=== PATIENT | female | born 1955 | race Caucasian/White ===

== ENCOUNTER 2017-04-12 06:30 | Inpatient (IN) | payer BC, OTHER ==
[2017-04-12] MEDS ORDERED: Acetaminophen 500 MG Tab PO ONE (06:45)
[2017-04-12] MEDS ORDERED: Scopolamine 1.5 MG Transdermal Patch TRDERM PRN (06:45)
[2017-04-12] MEDS ORDERED: Celecoxib 200 MG Cap PO ONE (06:45)
[2017-04-12] MEDS ORDERED: Gabapentin 300 MG Cap PO ONE (06:45)
[2017-04-12] MEDS ORDERED: Meropenem 500 MG SDV ONE (06:49)
[2017-04-12] MEDS ORDERED: Succinylcholine/Normal Saline 200 MG/10 ML Syringe ONE (07:09)
[2017-04-12] MEDS ORDERED: Propofol 200 MG/20 ML SDV ONE (07:09)
[2017-04-12] MEDS ORDERED: Ondansetron 4 MG/2 ML SDV ONE (07:09)
[2017-04-12] MEDS ORDERED: Neostigmine Methylsulfate 1 MG/ML 5 ML Syringe ONE (07:09)
[2017-04-12] MEDS ORDERED: Rocuronium 50 MG/5 ML Vial ONE (07:09)
[2017-04-12] MEDS ORDERED: Dexamethasone 4 MG/ML SDV ONE (07:09)
[2017-04-12] MEDS ORDERED: fentaNYL 250 MCG/5 ML SDV ONE ×2 (07:09→09:19)
[2017-04-12] MEDS ORDERED: Naloxone 0.4 MG/ML SDV IVPUSH PRN (07:55)
[2017-04-12] MEDS: Dextrose 5%-Lactated Ringers 1,000 ML IV SCH ×3 (08:02→21:54)
[2017-04-12] MEDS: HYDROmorphone/Normal Saline 15 MG/30 ML PCA IV PRN ×2 (08:03→12:32)
[2017-04-12] MEDS ORDERED: cefOXitin 2 GM in Sodium Chloride 0.9% 50 ML IV ONE (08:30)
[2017-04-12] MEDS ORDERED: Ropivacaine 46 ML, Dexamethasone 8 MG, EPINEPHrine 0.4 MG, Sodium Chloride 0.9% 31.6 ML NERVRT SCH ×4 (09:30)
[2017-04-12] MEDS ORDERED: Lidocaine 2% 100 MG/5 ML Syringe IVPUSH ONE (09:30)
[2017-04-12] MEDS ORDERED: Ketamine 500 MG/5 ML MDV IV SCH (09:30)
[2017-04-12] MEDS ORDERED: Labetalol 20 MG/4 ML Syringe ONE (09:33)
[2017-04-12] MEDS: Lidocaine 0.4%/D5W 2 GM/500 ML BAG IV SCH (13:23)
[2017-04-12] MEDS ORDERED: diphenhydrAMINE 50 MG/ML SDV IVPUSH PRN (14:00)
[2017-04-12] MEDS ORDERED: Metoclopramide 10 MG/2 ML SDV IVPUSH PRN (14:00)
[2017-04-12] MEDS ORDERED: hydrOXYzine HCl 100 MG/2 ML SDV IM PRN (14:00)
[2017-04-12] MEDS ORDERED: SCOPOLAMINE PATCH ASK TOP SCH (14:00)
[2017-04-12] MEDS ORDERED: Ondansetron 4 MG/2 ML SDV IVPUSH PRN (14:00)
[2017-04-12] MEDS: Labetalol 20 MG/4 ML Syringe IVPUSH PRN ×2 (14:15→15:35)
[2017-04-12] MEDS: cefOXitin 2 GM in Sodium Chloride 0.9% 50 ML IV SCH ×2 (15:21→22:02)
[2017-04-12] MEDS: SCOPOLAMINE PATCH CHECK TOP SCH (15:45)
[2017-04-12] MEDS: Acetaminophen Soln 650 MG/20.3 ML UD Cup PO SCH ×2 (15:47→22:03)
[2017-04-12] MEDS: Pantoprazole 40 MG Vial IVPUSH SCH (15:54)
[2017-04-12] MEDS ORDERED: MVI, Adult with Vitamin K 10 ML, Thiamine 200 MG, Chromium/Copper/Mang/Selen/Zn 1 ML in... IV SCH ×4 (16:00)
[2017-04-12] MEDS: Heparin Sodium 5,000 Units/ML Vial SUBCUT SCH (18:09)
[2017-04-12] MEDS: Gabapentin 250 MG/5 ML Solution ML 470 ML Bottle PO SCH (22:02)
[2017-04-13] MEDS ORDERED: Iohexol 647 MG/ML 50 ML SDV PO SCH (01:45)
[2017-04-13] MEDS: cefOXitin 2 GM in Sodium Chloride 0.9% 50 ML IV SCH ×3 (01:59→13:47)
[2017-04-13] MEDS: Lidocaine 0.4%/D5W 2 GM/500 ML BAG IV SCH (02:05)
[2017-04-13] MEDS: Acetaminophen Soln 650 MG/20.3 ML UD Cup PO SCH ×4 (04:26→21:45)
[2017-04-13] MEDS: Dextrose 5%-Lactated Ringers 1,000 ML IV SCH ×2 (04:26→10:35)
[2017-04-13] MEDS: Heparin Sodium 5,000 Units/ML Vial SUBCUT SCH ×2 (05:36→17:16)
[2017-04-13] MEDS ORDERED: LORazepam 1 MG Tab PO PRN (07:28)
[2017-04-13] MEDS: Gabapentin 250 MG/5 ML Solution ML 470 ML Bottle PO SCH ×3 (08:05→20:35)
[2017-04-13] MEDS: Celecoxib 200 MG Cap PO SCH (08:05)
[2017-04-13] MEDS ORDERED: Estrogens,Conjugated Vaginal Crm 30 GM Tube VAG SCH (09:00)
--- NOTE | 2017-04-13 09:56 | CR ---
UGI wo KUB HISTORY: Prior gastric bypass. COMPARISON: None FINDINGS: Second image demonstrates the majority of the contrast in the mid small bowel with no dila chalo small bowel loops. No evidence for obstruction. No extravasation of contrast. Surgical drains at the level of the gastric bypass.
--- NOTE | 2017-04-13 09:57 | PN ---
DATE OF SERVICE: 04/13/2017 SUBJECTIVE: Mireya is a 61-year-old female who is postop day one. Her blood pressure has been slightly elevated. She has been up ambulating in the chair x2. She does have some dizziness which causes nausea when up. Output via Cosme catheter was 2575 mL. Her EDY drains 1, 2 and 3 have put out 85, 50 and 7 mL respectively. REVIEW OF SYSTEMS: Remainder of review of systems negative for any pertinent positives and negatives. OBJECTIVE: GENERAL: Mireya Muse is a 61-year-old female. She is alert, orientated, sitting up onto the bed. VITAL SIGNS: TPR 98.1, 81, 18, blood pressure 158/89. HEENT: Negative. NECK: Supple. HEART: Regular rate and rhythm. LUNGS: Clear. ABDOMEN: Dressings dry and intact and EDY drains x3 intact. ASSESSMENT: Exploratory laparotomy with esophagogastrectomy with America-en-Y esophageal jejunostomy and pancreatic atrophy for gastroesophageal reflux disease refractory to medical management, extensive adhesions and scarring of the gastric curvature to the pancreas. Date of surgery 04/12/2017. PLAN: 1. Step-2 without cereal gastric bypass diet. Decrease IV to 100 mL per hour. Dressing off, may shower. Discontinue continuous pulse ox and cardiac monitoring, lidocaine drip is in. Restart home medications of estrogen 0.625 mg p.o. daily. Estrogen conjugated vaginal cream 0.5 g daily intravaginally. 2. Lorazepam 1 mg every 4 hours p.r.n. anxiety. 3. Wellbutrin 150 mg p.o. b.i.d. 4. Trazodone 100 mg p.o. at bedtime. 5. Good pulmonary toilet encouraged. 6. We will evaluate p.r.n. or in a.m. Petra Mckeon PA-C /[id number]
[2017-04-13] MEDS: SCOPOLAMINE PATCH CHECK TOP SCH (10:31)
[2017-04-13] MEDS: buPROPion 100 MG Tab PO SCH ×2 (10:36→20:35)
[2017-04-13] MEDS ORDERED: MVI, Adult with Vitamin K 10 ML, Thiamine 200 MG, Chromium/Copper/Mang/Selen/Zn 1 ML in... IV SCH ×4 (16:00)
[2017-04-13] MEDS: Pantoprazole 40 MG Vial IVPUSH SCH (16:44)
[2017-04-13] MEDS: traZODone 50 MG Tab PO SCH (20:35)
[2017-04-14] MEDS: Dextrose 5%-Lactated Ringers 1,000 ML IV SCH (02:49)
[2017-04-14] MEDS: Acetaminophen Soln 650 MG/20.3 ML UD Cup PO SCH (04:20)
[2017-04-14] MEDS: Heparin Sodium 5,000 Units/ML Vial SUBCUT SCH ×2 (05:49→17:13)
[2017-04-14] MEDS: Celecoxib 200 MG Cap PO SCH (07:42)
[2017-04-14] MEDS ORDERED: Sodium Chloride 0.9% 10 ML Syringe IV PRN (07:54)
[2017-04-14] MEDS ORDERED: Furosemide 20 MG/2 ML VIAL IVPUSH ONE (09:00)
[2017-04-14] MEDS ORDERED: Cyanocobalamin (Vitamin B12) 1,000 MCG/ML SDV IM ONE (09:00)
[2017-04-14] MEDS: buPROPion 100 MG Tab PO SCH ×2 (09:50→21:35)
[2017-04-14] MEDS: Gabapentin 250 MG/5 ML Solution ML 470 ML Bottle PO SCH ×3 (09:50→21:35)
[2017-04-14] MEDS: Acetaminophen/oxyCODONE 325-5 MG Tab PO PRN ×3 (10:49→21:42)
[2017-04-14] MEDS: SCOPOLAMINE PATCH CHECK TOP SCH (10:50)
--- NOTE | 2017-04-14 16:16 | PCM.CONS ---
H&P History of Present Illness - General Date of Service: 04/14/17 Admit Problem/Dx: Admission Diagnosis/Problem Admission Diagnosis/Problem America-en-Y gastrojejunostomy Source of Information: Patient History Limitations: Reports: No Limitations - History of Present Illness Initial Comments - Free Text/Narative: I was asked by Dr. Rossi to evaluate Mireya regarding hypertension. She is day 2 postop after a partial gastrectomy. Initially blood pressures were elevated in the 180s but they had improved. This afternoon after ambulating her blood pressure was checked and noted to be 180/102. She has some mild nausea at this time but does not report any chest pain. She does not feel short of breath. She does not have any lower extremity or upper extremity edema. She did receive a dose of furosemide this morning. She has not been having any fevers. Tolerating her diet so far. No history of hypertension. She says that her blood pressure is normally very well controlled. Abdomen Pain Score (Numeric/FACES): 8 - Related Data Allergies/Adverse Reactions: Allergies Allergy/AdvReac Type Severity Reaction Status Date / Time bacitracin Allergy Rash Verified 04/12/17 06:57 Home Medications: Home Meds Cyanocobalamin (Vitamin B-12) [B-12] 1 tab PO DAILY 04/10/17 [History] Ergocalciferol (Vitamin D2) [Vitamin D2] 50,000 units PO Q7D 04/10/17 [History] Estrogens, Conjugated [Premarin Vaginal Crm] 0.5 g VAG DAILY 04/10/17 [History] Estrogens, Conjugated [Premarin] 0.625 mg PO DAILY 04/10/17 [History] LORazepam 1 mg PO Q4HR PRN 04/10/17 [History] Multivitamin [Multivitamins] 1 tab PO DAILY 04/10/17 [History] Pantoprazole Sodium [Protonix] 40 mg PO DAILY 04/10/17 [History] Scopolamine [Transderm-Scop] 1 patch TOP ASDIRECTED 04/10/17 [History] buPROPion [Wellbutrin SR] 300 mg PO DAILY 04/10/17 [History] traZODone 100 mg PO BEDTIME 04/10/17 [History] Past Medical History Gastrointestinal History: Reports: Chronic Diarrhea, GERD, Other (See Below) Other Gastrointestinal History: dumping syndrome Genitourinary History: Reports: UTI, Recurrent RECRUITER SPECIALIST History: Reports: Ectopic , - Past Surgical History HEENT Surgical History: Reports: Tonsillectomy GI Surgical History: Reports: Appendectomy, Bariatric Procedure, Cholecystectomy , Colonoscopy, EGD, Esophageal Dilatation, Other (See Below) Other GI Surgeries/Procedures: panniculectomy Female Surgical History: Reports: Hysterectomy, Tubal Ligation, Other (See Below) Other Female Surgeries/Procedures: "pocket in bladder" repaired Endocrine Surgical History: Reports: Other (See Below) Other Endocrine Surgeries/Procedures: partial thyroidectomy Musculoskeletal Surgical History: Reports: Other (See Below) Other Musculoskeletal Surgeries/Procedures:: knee surgery Social & Family History - Family History Cardiac: Denies: CAD - Tobacco Use Smoking Status *Q: Never Smoker Second Hand Smoke Exposure: No - Caffeine Use Caffeine Use: Reports: Soda - Alcohol Use Alcohol Use History: No - Recreational Drug Use Recreational Drug Use: No H&P Review of Systems - Review of Systems: Review Of Systems: See Below Free Text/Narrative: A complete 12 point review of systems was obtained. Pertinent positives and negatives are noted in the history of present illness. All other systems were reviewed and were negative except as noted. Exam - Exam Exam: See Below - Vital Signs Vital Signs: Last Vital Signs Temp 37.5 C 04/14/17 15:02 Pulse 96 04/14/17 15:02 Resp 16 04/14/17 15:02 BP 180/102 H 04/14/17 15:02 Pulse Ox 94 L 04/14/17 15:02 Weight: 90.265 kg - Exam Quality Assessment: No: Supplemental Oxygen General: Alert, Oriented, Cooperative. No: Mild Distress HEENT: Conjunctiva Clear, Mucosa Moist & Tees Toh. No: Scleral Icterus Neck: Supple, Trachea Midline Lungs: Clear to Auscultation, Normal Respiratory Effort Cardiovascular: Regular Rate, Regular Rhythm. No: Systolic Murmur GI/Abdominal Exam: Soft, No Distention, Tender Back Exam: Normal Inspection, Full Range of Motion Extremities: Normal Inspection, No Pedal Edema. No: Increased Warmth Skin: Warm, Dry Neuro Extensive - Mental Status: Alert, Oriented x3, Nl Response to Commands Neuro Extensive - Motor, Sensory, Reflexes: CN II-XII Intact. No: Dysarthria, Abnormal Motor, Tremor Psychiatric: Alert, Normal Affect Consult PN Assessment/Plan POD#: 2 Procedures: Procedures BLOOD TYPING SEROLOGIC ABO (04/06/17) BLOOD TYPING SEROLOGIC RH(D) (04/06/17) RBC ANTIBODY SCREEN (04/06/17) Problem List Initiated/Reviewed/Updated: Yes Plan: ASSESSMENT AND PLAN Accelerated hypertension - blood pressure elevated this afternoon but had been acceptable prior to that for the past 36 hours. No obvious red flags based on history or examination. She does feel a little nauseated and is having some increased pain at this time. She did receive a dose of furosemide this morning. No evidence for infection that I can see. There is no convincing evidence for volume overload. Could be related to recent ambulation and pain. -Repeat blood pressure in one hour -Consider laboratory studies including CBC BMP if blood pressure still elevated and one hour -I do not see an obvious reason to initiate antihypertensive therapy as of now Status post partial gastrectomy - general doing fairly well postoperatively with no major issues. She has been ambulating. -Postop cares per surgical team Panchito Mares M.D. Requesting Provider: Dr. Rossi Date Consult Requested: 04/14/17 Reason for Consult: Hypertension Patient History Reviewed: Yes Admission H&P Reviewed: Yes Notified Requestor: No Time Spent (in minutes): 45
[2017-04-14] MEDS ORDERED: Pantoprazole 40 MG Tab.CR PO SCH (16:30)
[2017-04-14] MEDS: traZODone 50 MG Tab PO SCH (21:35)
[2017-04-15] MEDS: Acetaminophen/oxyCODONE 325-5 MG Tab PO PRN ×3 (03:13→07:51)
[2017-04-15] MEDS: Heparin Sodium 5,000 Units/ML Vial SUBCUT SCH (05:52)
[2017-04-15] MEDS: Celecoxib 200 MG Cap PO SCH (07:52)
[2017-04-15 08:22] VITALS: BP 146/89
[2017-04-15] MEDS: buPROPion 100 MG Tab PO SCH (08:29)
[2017-04-15] MEDS: Gabapentin 250 MG/5 ML Solution ML 470 ML Bottle PO SCH (08:29)
[2017-04-15] MEDS ORDERED: Scopolamine 1.5 MG Transdermal Patch TOP ONE (10:00)
--- NOTE | 2017-04-15 10:29 | PN ---
DATE OF SERVICE: 04/14/2017 The patient has been afebrile, somewhat hypertensive. I think we will empirically give her a single dose of 10 mg of Lasix this morning and see if that brings down the blood pressure. Otherwise, we will switch over to oral pain medication from the SOCIAL SERVICES DIRECTOR. We will go with Percocet and discontinue the serial Tylenol, but continue the gabapentin and Celebrex. She may be ready for discharge home tomorrow. Rafael Rossi MD /[id number]
--- NOTE | 2017-04-16 14:46 | DISCH ---
FINAL DIAGNOSES: 1. Gastric outlet obstruction, refractory to medical and endoscopic management. 2. Extensive adhesive scarring between the gastric cardia and the pancreas. 3. Bariatric surgery status. OPERATIVE PROCEDURE: Exploratory laparotomy with: 1. Esophagogastrectomy with America-en-Y esophagojejunostomy. 2. Pancreatorrhaphy. 3. Resection and revision of jejunojejunostomy. This was done 04/12/2017. HOSPITAL COURSE: This 61-year-old female status post a America-en-Y gastric bypass done in [place] in 1994 who has had more or less from the time of surgery problems with obstruction at her gastrojejunostomy. Recent endoscopy confirmed a large amount of retained fluid along with a nondilatable stricture at the gastrojejunostomy. Given this at this point, the patient has undergone exploratory laparotomy with resection and revision of the area of the gastric outlet obstruction. At the time of dissection, the patient was noted to have extensive scarring between the pancreas and gastric cardia and esophagogastric junction. This necessitated a plane of dissection being more or less in the distal esophagus, i.e. esophagogastrectomy was accomplished. This was dissected off pancreas which did need to have some sutures and fibrin sealant for repair, but no significant ductal injury was noted. The patient also had a foreshortened America limb following the dissection and this was revised to provide it more satisfactorily lengthened America limb. Postoperatively, the patient has done well. She tolerated liquid diet and she is instructed to stay on a liquid diet with some protein supplements drinks for the first two weeks postoperatively. DISCHARGE MEDICATIONS: Include switching her Wellbutrin to 150 mg IR t.i.d., Neurontin 300 mg p.o. t.i.d. x2 weeks, Celebrex 200 mg p.o. q.a.m. x2 weeks, Percocet 5/325 mg 1 to 2 tabs q.4 hours p.r.n. pain, #50. She will be instructed to continue her estrogen, lorazepam, Protonix, and trazodone as before splitting or opening caplets x2 weeks and also continue use of scopolamine patches if she desires. We will have her hold the vitamin supplements until her 1st appointment. She will be following up with Petra Mckeon in [facility] on 04/20/2017. She will go home with a drain in her midline incision to minimize chances of seroma formation.
--- NOTE | 2017-04-18 07:59 | OR ---
DATE OF PROCEDURE: 04/12/2017 PREOPERATIVE DIAGNOSES: 1. Longstanding gastric outlet obstruction refractory to medical management. 2. Extensive adhesive scarring of gastric cardia to pancreas. 3. Inadequate length of America limb following initial gastric resection. OPERATIVE PROCEDURE: Exploratory laparotomy with lysis of adhesions. 1. Esophagogastrectomy with America-en-Y esophagojejunostomy (19649). 2. Pancreatorrhaphy (02452). 3. Resection and revision of jejunojejunostomy (05487). ANESTHESIA: General. CLINICAL SERVICES PROFESSIONAL: Petra Mckeon PA-C INDICATIONS FOR PROCEDURE: This is a 61-year-old female presenting with longstanding gastric outlet obstruction associated with a large gastric pouch and narrowed gastrojejunostomy. This has been dilated several times without success as well as treating the acid production with a variety of H2 blockers and proton pump inhibitors over time. At this point, the plan is proceed with a resection of the previous gastric pouch with hinduism of the gastrojejunostomy with a very small (less than 10 mL volume) gastric pouch. Potential risks of the procedure including bleeding, infection, injury to underlying viscera, possible leaks from the gastrojejunostomy, as well as possibility of cardiopulmonary, septic, or hemorrhagic complications leading to were discussed, and the patient wishes to proceed. DETAILS OF PROCEDURE: The patient was taken to the operating room. After general endotracheal anesthesia was induced, bilateral subcostal transversus abdominis plane blocks were placed using a standard solution. These were placed under continuous ultrasound guidance. Following this the abdomen was prepped and draped and the Cosme catheter inserted. Previous upper midline incision was then reused and carried down through the full-thickness abdominal wall. Upon entering the peritoneal cavity, general exploration was undertaken. Some adhesions between the omentum and the abdominal wall were then taken down, and the small bowel was examined. The area of the jejunojejunostomy was noted. The patient had a biliopancreatic limb length of around 30 cm. At this point, dissection of the America limb approximately through the transverse mesocolon was accomplished with a combination of blunt and cautery dissection. This potentially dissection at the level of the gastrojejunostomy, which was quite low given the large size of the gastric pouch. Attention was then taken to the uppermost abdomen, adhesions between the liver and the underlying stomach were taken down with a combination of blunt and cautery dissection, and the liver retracting medially. An [place] tube had been placed orally per Anesthesia, and this was directed across the gastric pouch in through the gastrojejunostomy to help identify the specific anatomy of the gastric pouch, which was eventually dissected free from the bypassed stomach. Initially, the small bowel adjacent to gastrojejunostomy was divided with a MODESTO stapler. As one began dissecting proximally, it became evident there was a very extensive adherence to the gastric cardia, pancreas as well as the retroperitoneum overlying the aorta above that. As one dissected free, it became evident that the safer plane of division would be within the distal most esophagus. Then the distal esophagus was encircled and then divided with 2 firings of MODESTO black loads. The remaining attachments of the distal most esophagus, gastric pouch, and attached America limb were then divided with a combination of diego, electrocautery as well as some blunt dissection, and that specimen delivered from the field. At this point, the America limb was inspected. It was felt to be of inadequate length at this point measuring around 50 cm. Given this, the previous jejunojejunostomy was divided leaving an adequate lumen of what the bowel would have been the America limb going into the common limb of roughly 5 cm segment of the biliopancreatic limb where it was felt to be inadequately vascularized at this point that was then resected with a MODESTO stapler along with Harmonic scalpel for the mesentery. The new jejunojejunostomy was then constructed creating a new America limb of around 200 cm. This was then [id number] jejunojejunostomy firing with a MODESTO stapler at the common opening point and closed transversely. Angles anastomosed, mesenteric defect at that level were closed with some 3-0 Vicryl stitch as well. The new America limb then came up to the divided esophagus thru the previous retrogastric retrocolic tunnel. A 25 mm anvil for the EEA stapler was then attached to Zapata sump type tube and brought down through the mouth and down to the divided esophagus, which was then opened slightly allowing the tube and then the anvil be pulled down within the divided esophagus. During the course of the dissection, the patient had some surface of the pancreas somewhat become more or less roughened up with division of the surface, none of this were deep enough to involve the vessels. At three places to approximate the pancreas, [id number] stitches of 3-0 Vicryl stitches were placed and then fibrin sealant over the area of the pancreatorraphy. At this point then the America limb was opened and main body of several centimeters lumen of the small bowel brought up to the anvil and esophagojejunostomy thus created. Upon removal of stapler, double donuts of mucosa were noted within it. It was notable that the distal end of the EEA stapler donut clearly contained esophageal mucosa and this anastomosis was then reinforced with some 3-0 Vicryl seromuscular stitch over its anterior 2/3rd and then fibrin sealant and the small bowel was closed with a vascular stapler. The part of the small bowel that came through the mesentery was then closed with some 3-0 Vicryl stitch and at that point no further problems were noted. Two Rigo-Carey drains were placed through stab wounds in the left subcostal area and placed adjacent to the esophagojejunostomy. The abdomen was irrigated with antibiotic-containing saline solution and the midline fascia was approximated with a #2 Vicryl stitch. The subcutaneous tissue was then drained with 10-Cay[place] Islander round Rigo-Carey drain placed inferiorly and the skin with diego. Drains were fixed with some 3-0 Vicryl stitch, and patient taken to the recovery room in satisfactory condition. Physician household assistant, Petra Mckeon, played an essential role in assisting in this case, helping to position the patient, retract structures as needed, as well as suturing and stapling when indicated. Her presence improved the patient's safety and decreased operative time. Rafael Rossi MD /[id number]
== END 2017-04-15 11:55 | disposition home or self-care (01) | DRG 220 ==
LOC: JP.SDS 06:30 → JP.SDSSCHI 06:30 → EDSTATUS 10:45 → JP.2SS 11:05
PROVIDERS: ADMIT Surgery; ATTEND Surgery
DX: K31.1 Adult hypertrophic pyloric stenosis (principal); K21.9 Gastro-esophageal reflux disease without esophagitis; R03.0 Elevated blood-pressure reading, without diagnosis of hypertension; K91.1 Postgastric surgery syndromes; Z98.84 Bariatric surgery status; Z87.440 Personal history of urinary (tract) infections; Z88.8 Allergy status to other drugs, medicaments and biological substances; K66.0 Peritoneal adhesions (postprocedural) (postinfection); K86.89 Other specified diseases of pancreas
CPT/HCPCS: 36415; 74240; 74240-26; 81001; 86850; 86900; 86901; 88307; 94762; A9270-GY; C9113; J0171; J0694; J1100; J1170; J1644; J1940; J2001; J2185; J2405; J2704; J2765; J2795; J3010; J3411; J3420; J7030; J7042; J7050; Q9967